=== PATIENT | female | born 1945 | race Caucasian/White ===

== ENCOUNTER 2021-06-21 10:14 | Emergency (ER) | payer OTHER ==
[2021-06-21 10:20] VITALS: BMI 37.0
[2021-06-21] MEDS ORDERED: ACETAMINOPHEN 325 MG TABLET (FP) PO ONE (11:39)
[2021-06-21] MEDS ORDERED: ACETAMINOPHEN 325 MG TABLET (FP) ONE (12:06)
[2021-06-21 13:06] LABS: BLOOD UREA NITROGEN 15.3 mg/dL (7-18); CALCIUM 9.5 mg/dL (8.5-10.1)
[2021-06-21 13:10] LABS: CREATININE 0.8 mg/dL (0.55-1.3)
[2021-06-21 13:35] LABS: BASO % 1.1 % (0-2.0); EOS % 2.2 % (0-4.5); HEMATOCRIT 44.8 % (32.4-45.2); HEMOGLOBIN 15.2 GM/dL (10.7-15.3); LYMPH % 20.3 % (8-40); MCH 27.9 pg (25.7-33.7); MCHC 33.9 g/dl (32.0-36.0); MEAN CELL VOLUME 82.3 fl (80-96); MEAN PLT VOLUME 8.2 fl (7.5-11.1); MONO % 4.3 % (3.8-10.2); NEUT % 72.1 % (42.8-82.8); PLATELET COUNT 236 10^3/uL (134-434); RBC 5.45 M/mm3 (3.60-5.2); RDW 14.6 % (11.6-15.6)
[2021-06-21 14:03] LABS: BLOOD UREA NITROGEN 15.9 mg/dL (7-18); CALCIUM 9.4 mg/dL (8.5-10.1)
[2021-06-21 14:06] LABS: CREATININE 0.9 mg/dL (0.55-1.3)
[2021-06-21 14:24] VITALS: BP 175/89; PULSE 66; TEMP 97.9
[2021-06-21] MEDS ORDERED: DALBAVANCIN HCL 500 MG VIAL (RESTRICTED TO ID ONLY) IVPB ONE (14:28)
[2021-06-21] MEDS: DALBAVANCIN HCL 1,500 MG in DEXTROSE 5%-WATER - 500 ML IVPB ONE ×2 (14:35→15:05)
== END 2021-06-21 16:53 | disposition home or self-care (01) ==
LOC: JER 10:14
DX: L03.116 Cellulitis of left lower limb (principal); L53.9 Erythematous condition, unspecified
CPT/HCPCS: 36415; 80048; 85025; 99284-25; J0875

== ENCOUNTER 2024-06-15 18:59 | Emergency (ER) | payer BC, OTHER ==
[2024-06-15 19:04] VITALS: BP 165/80; PULSE 110; RESP 18; TEMP 98.7; BMI 33.8
[2024-06-15] MEDS ORDERED: ACETAMINOPHEN 325 MG TABLET (FP) ONE (20:41)
[2024-06-15] MEDS ORDERED: IBUPROFEN 400 MG TABLET (FP) PO ONE (20:42)
[2024-06-15] MEDS: IBUPROFEN 400 MG TABLET (FP) PO ONE (20:44)
[2024-06-15] MEDS: ACETAMINOPHEN 325 MG TABLET (FP) PO ONE (20:44)
== END 2024-06-15 21:25 | disposition home or self-care (01) ==
LOC: JERFT 18:59 → JER 18:59 → JERFT 21:25
PROC: 2W3CX1Z Immobilization of Right Lower Arm using Splint (ICD-10-PCS; principal; 2024-06-15)
DX: S52.602A Unspecified fracture of lower end of left ulna, initial encounter for closed fracture (principal); M25.511 Pain in right shoulder; W01.0XXA Fall on same level from slipping, tripping and stumbling without subsequent striking against object, initial encounter
CPT/HCPCS: 70220-TC-FY; 73030-TC-RT-FY; 73110-TC-LT-FY; 73110-TC-RT-FY; 73130-TC-LT-FY; 73130-TC-RT-FY; 99284-25